=== PATIENT | male | born 1990 | race Two or more races ===

== ENCOUNTER 2018-09-28 17:13 | Emergency (ER) | payer OTHER ==
[~2018-09-28] VITALS: Ht 172.7 cm; Wt 95.3 kg
--- NOTE | 2018-09-28 17:32 | NUR ---
PT IS IN ROOM #5. DR GIMENEZ EVALUATED THE PT.
[2018-09-28] MEDS ORDERED: KETOROLAC TROMETHAMINE 60 MG INJ IM ONE ×2 (17:42→17:45)
--- NOTE | 2018-09-28 18:35 | NUR ---
PT WAS D/C'd TO HOME AFTER DR GIMENEZ RE-EVALUATION. D/C INSTRUCTIONS GIVEN TO THE PT.
[2018-09-28 18:36] VITALS: BP 136/74
== END 2018-09-28 18:37 | disposition home or self-care (01) ==
LOC: ER 17:18
DX: S29.012A Strain of muscle and tendon of back wall of thorax, initial encounter (principal); X50.1XXA Overexertion from prolonged static or awkward postures, initial encounter; Y93.89 Activity, other specified; Y92.89 Other specified places as the place of occurrence of the external cause; Y99.8 Other external cause status
CPT/HCPCS: 72072; 96372; 99283; J1885; A4663